=== PATIENT | male | born 1950 | race Caucasian/White ===

== ENCOUNTER 2022-07-24 12:10 | Inpatient (IN) | payer MEDICARE ==
[~2022-07-24] VITALS: Ht 177.8 cm; Wt 72.7 kg
[2022-07-24] MEDS ORDERED: ATOR40TA71 PO (12:37)
[2022-07-24] MEDS ORDERED: EMPA10TA3 PO (12:37)
[2022-07-24] MEDS ORDERED: METF-446 PO (12:37)
[2022-07-24] MEDS ORDERED: AMLO10TA55 PO (12:37)
[2022-07-24] MEDS ORDERED: METO25 PO (12:37)
[2022-07-24] MEDS ORDERED: LOSA100T58 PO (12:37)
[2022-07-24] MEDS ORDERED: PIOG15TA66 PO (12:37)
[2022-07-24] MEDS ORDERED: TAMS-13 PO (12:37)
[2022-07-24] MEDS ORDERED: IBUPROFEN 600 MG TABLET PO ONE (17:00)
[2022-07-24] MEDS ORDERED: SODIUM CHLORIDE 0.9% 1,000 ML IV ONE ×2 (17:00→18:15)
[2022-07-24 17:43] LABS: CALCIUM, TOTAL 9.4 mg/dL (8.8-10.5); CREATININE 1.75 mg/dL (0.60-1.30); POTASSIUM 3.3 mmol/L (3.5-5.1)
[2022-07-24] MEDS ORDERED: MORPHINE SULFATE 2 MG/ML SYRINGE IVP ONE (18:00)
[2022-07-24] MEDS ORDERED: MORPHINE SULFATE 2 MG/ML SYRINGE IVP PRN (18:15)
[2022-07-24] MEDS ORDERED: ONDANSETRON HCL 4 MG/2 ML VIAL IVP PRN ×2 (18:15→22:15)
[2022-07-24 18:20] LABS: BASOPHILS % (AUTO) 0.4 % (0.0-2.0); EOSINOPHILS % (AUTO) 0.4 % (1.0-6.0); HEMATOCRIT 40.4 % (41-53); HEMOGLOBIN 13.3 g/dL (13.5-17.5); LYMPHOCYTES # (AUTO) 1.1 K/uL (1.0-4.8); LYMPHOCYTES % (AUTO) 15.9 % (22.0-44.0); MEAN CORPUSCULAR HEMOGLOBIN 32.3 pg (26.0-34.0); MEAN CORPUSCULAR HGB CONC 32.8 G/dL (31.0-37.0); MEAN CORPUSCULAR VOLUME 98 fL (80-100); MONOCYTES # (AUTO) 0.3 K/uL (0.1-1.0); NEUTROPHILS # (AUTO) 5.4 K/uL (1.8-7.7); NEUTROPHILS % (AUTO) 78.3 % (40.0-70.0); PLATELET COUNT (AUTO) 283 K/uL (150-450); RED BLOOD CELL COUNT(AUTO) 4.11 MIL/uL (4.50-5.90); RED CELL DISTRIBUTION WIDTH 13.7 % (11.5-14.5)
[2022-07-24 19:10] LABS: COVID AG,FIA SOURCE NASOPHARYNGEAL
[2022-07-24 21:28] VITALS: BP 172/105
[2022-07-24] MEDS ORDERED: LOSARTAN POTASSIUM 50 MG TABLET PO ONE (22:00)
[2022-07-24] MEDS ORDERED: AmLODIPine BESYLATE 10 MG TABLET PO ONE (22:00)
[2022-07-24] MEDS ORDERED: IPRATROPIUM BROMIDE 0.5 MG/2.5 ML NEB SOLUTION NEB PRN (22:15)
[2022-07-24] MEDS ORDERED: MAGNESIUM HYDROXIDE SUSPENSION 30 ML UDCUP PO PRN (22:15)
[2022-07-24] MEDS ORDERED: DEXTROSE 50%-WATER 25 GM/50 ML SYRINGE IVP PRN (22:15)
[2022-07-24] MEDS ORDERED: BISACODYL 10 MG RECTAL RECTAL SUPPOSITORY PR PRN (22:15)
[2022-07-24] MEDS ORDERED: ALBUTEROL SULFATE 2.5 MG/0.5 ML NEB SOLUTION NEB PRN (22:15)
[2022-07-24] MEDS ORDERED: ACETAMINOPHEN 325 MG TABLET PO PRN (22:15)
[2022-07-24] MEDS ORDERED: METOPROLOL TARTRATE 25 MG TABLET PO ONE (22:15)
[2022-07-24] MEDS ORDERED: ZOLPIDEM TARTRATE 5 MG TABLET PO PRN (22:15)
[2022-07-24] MEDS ORDERED: POTASSIUM CHLORIDE 20 MEQ ER TABLET PO ONE (22:30)
[2022-07-24] MEDS: ATORVASTATIN CALCIUM 40 MG TABLET PO SCH (22:42)
[2022-07-24] MEDS: INSULIN LISPRO 100 UNITS/ML SQ PRN (22:45)
[2022-07-24] MEDS: SODIUM CHLORIDE 0.9% 1,000 ML IV SCH (22:48)
[2022-07-24] MEDS: HEPARIN SODIUM,PORCINE 5,000 UNITS/ML VIAL SQ SCH (23:15)
[2022-07-24 23:36] LABS: GLUCOMETER DEV NAME(LOC) 6N.2B; GLUCOSE,POINT OF CARE 218 MG/DL (70-110)
[2022-07-25 04:00] VITALS: BP 144/95
[2022-07-25] MEDS: EMPAGLIFLOZIN 10 MG TABLET PO SCH (06:20)
[2022-07-25 07:54] VITALS: BP 148/91
[2022-07-25 07:56] LABS: GLUCOMETER DEV NAME(LOC) 6N.2B; GLUCOSE,POINT OF CARE 188 MG/DL (70-110)
[2022-07-25] MEDS: HEPARIN SODIUM,PORCINE 5,000 UNITS/ML VIAL SQ SCH (08:00)
[2022-07-25 08:16] LABS: BASOPHILS % (AUTO) 0.7 % (0.0-2.0); EOSINOPHILS % (AUTO) 2.1 % (1.0-6.0); HEMATOCRIT 40.9 % (41-53); HEMOGLOBIN 13.5 g/dL (13.5-17.5); LYMPHOCYTES # (AUTO) 1.1 K/uL (1.0-4.8); LYMPHOCYTES % (AUTO) 19.6 % (22.0-44.0); MEAN CORPUSCULAR HEMOGLOBIN 32.2 pg (26.0-34.0); MEAN CORPUSCULAR VOLUME 98 fL (80-100); MONOCYTES # (AUTO) 0.4 K/uL (0.1-1.0); MONOCYTES % (AUTO) 7.3 % (2.0-9.0); NEUTROPHILS # (AUTO) 4.1 K/uL (1.8-7.7); NEUTROPHILS % (AUTO) 70.3 % (40.0-70.0); PLATELET COUNT (AUTO) 273 K/uL (150-450); RED BLOOD CELL COUNT(AUTO) 4.19 MIL/uL (4.50-5.90); RED CELL DISTRIBUTION WIDTH 13.4 % (11.5-14.5)
[2022-07-25] MEDS: PANTOPRAZOLE SODIUM 40 MG/VIAL IVP SCH (08:16)
[2022-07-25] MEDS: LOSARTAN POTASSIUM 50 MG TABLET PO SCH (08:16)
[2022-07-25] MEDS: METOPROLOL TARTRATE 25 MG TABLET PO SCH ×2 (08:16→20:41)
[2022-07-25] MEDS: DOCUSATE SODIUM 100 MG CAPSULE PO SCH ×2 (08:16→20:40)
[2022-07-25] MEDS: PIOGLITAZONE HCL 15 MG TABLET PO SCH (08:17)
[2022-07-25] MEDS: AmLODIPine BESYLATE 10 MG TABLET PO SCH (08:17)
[2022-07-25] MEDS: TAMSULOSIN HCL 0.4 MG CAPSULE PO SCH (08:19)
[2022-07-25 08:37] LABS: ALANINE AMINOTRANSFERASE 29 U/L (12-78); ALBUMIN 2.8 g/dL (3.4-5.0); ALKALINE PHOSPHATASE 126 U/L (46-116); ANION GAP 9 mmol/L (8-16); ASPARTATE AMINOTRANSFERASE 36 U/L (15-37); BILIRUBIN,TOTAL 0.6 mg/dL (0.1-1.0); CARBON DIOXIDE 28 mmol/L (22-29); CHLORIDE 103 mmol/L (98-107); CREATININE 1.11 mg/dL (0.60-1.30); GLUCOSE,RANDOM 174 mg/dL (70-110); POTASSIUM 3.7 mmol/L (3.5-5.1); SODIUM SERUM 140 mmol/L (136-145); TOTAL PROTEIN, SERUM 7.8 g/dL (6.4-8.2); UREA NITROGEN, BLOOD 14 mg/dL (7-18)
[2022-07-25 08:38] LABS: GLOMERULAR FILTR. RATE CALC > 60 mL/min (>60)
[2022-07-25] MEDS ORDERED: SODIUM CHLORIDE 0.9% 1,000 ML IV ONE (09:45)
[2022-07-25] MEDS ORDERED: BUPIVACAINE LIPOSOME/PF 1.3%-13.3MG/ML SUSPENSION 20 ML VIAL INJ ONE (10:15)
[2022-07-25 10:16] VITALS: BP 141/89
[2022-07-25] MEDS ORDERED: SODIUM CL IRRIG SOLN BAG 3,000 ML IRRIG ONE (10:29)
[2022-07-25] MEDS ORDERED: BUPIVACAINE HCL/PF 0.25% 30 ML VIAL ONE (10:29)
[2022-07-25] MEDS ORDERED: VANCOMYCIN HCL 1 GM/VIAL ONE (10:29)
[2022-07-25] MEDS ORDERED: TRANEXAMIC ACID 1,000 MG in DEXTROSE 5%-WATER 50 ML IV ONE (10:30)
[2022-07-25] MEDS ORDERED: RINGERS SOLUTION,LACTATED 1,000 ML IV ONE (11:47)
[2022-07-25] MEDS ORDERED: SUGAMMADEX SODIUM 200 MG/2 ML VIAL IVP ONE (13:02)
[2022-07-25] MEDS ORDERED: ACETAMINOPHEN 1000 MG/ISO-OSM 100 ML IV ONE ×2 (13:19→13:45)
[2022-07-25] MEDS: MORPHINE SULFATE 2 MG/ML SYRINGE IVP PRN ×2 (14:21→20:36)
[2022-07-25] MEDS: ENOXAPARIN SODIUM 40 MG/0.4 ML PF SYRINGE SQ SCH (14:43)
[2022-07-25] MEDS: SODIUM CHLORIDE 0.9% 1,000 ML IV SCH (14:44)
[2022-07-25 15:45] VITALS: BP 111/59
[2022-07-25] MEDS: HYDROCODONE/ACETAMINOPHEN 5-325 MG TABLET PO PRN (16:33)
[2022-07-25 18:56] LABS: GLUCOMETER DEV NAME(LOC) 6N.1; GLUCOSE,POINT OF CARE 172 MG/DL (70-110)
[2022-07-25] MEDS: ATORVASTATIN CALCIUM 40 MG TABLET PO SCH (20:40)
[2022-07-25] MEDS: CeFAZolin 1 GM/DEXTROSE 50 ML IV SCH (20:40)
[2022-07-25] MEDS: INSULIN LISPRO 100 UNITS/ML SQ PRN (20:42)
[2022-07-25 21:31] LABS: GLUCOMETER DEV NAME(LOC) 6N.2B; GLUCOSE,POINT OF CARE 166 MG/DL (70-110)
[2022-07-26] MEDS: MORPHINE SULFATE 2 MG/ML SYRINGE IVP PRN (00:11)
[2022-07-26] MEDS: SODIUM CHLORIDE 0.9% 1,000 ML IV SCH ×2 (01:09→14:33)
[2022-07-26] MEDS: CeFAZolin 1 GM/DEXTROSE 50 ML IV SCH ×2 (03:05→11:29)
[2022-07-26] MEDS: EMPAGLIFLOZIN 10 MG TABLET PO SCH (05:55)
[2022-07-26] MEDS ORDERED: FentaNYL CITRATE PF 100 MCG/2 ML VIAL IVP ONE (06:08)
[2022-07-26] MEDS ORDERED: LIDOCAINE/PF 2% 5 ML SYRINGE IVP ONE (06:08)
[2022-07-26] MEDS ORDERED: PROPOFOL 1% 20 ML VIAL IVP ONE (06:08)
[2022-07-26] MEDS ORDERED: ONDANSETRON HCL 4 MG/2 ML VIAL IVP ONE (06:08)
[2022-07-26 06:58] LABS: BASOPHILS % (AUTO) 0.6 % (0.0-2.0); EOSINOPHILS % (AUTO) 0.3 % (1.0-6.0); HEMOGLOBIN 12.4 g/dL (13.5-17.5); LYMPHOCYTES % (AUTO) 9.4 % (22.0-44.0); MEAN CORPUSCULAR HEMOGLOBIN 32.2 pg (26.0-34.0); MEAN CORPUSCULAR HGB CONC 32.5 G/dL (31.0-37.0); MEAN CORPUSCULAR VOLUME 99 fL (80-100); MONOCYTES # (AUTO) 0.8 K/uL (0.1-1.0); MONOCYTES % (AUTO) 8.2 % (2.0-9.0); NEUTROPHILS # (AUTO) 8.5 K/uL (1.8-7.7); NEUTROPHILS % (AUTO) 81.5 % (40.0-70.0); PLATELET COUNT (AUTO) 265 K/uL (150-450); RED BLOOD CELL COUNT(AUTO) 3.83 MIL/uL (4.50-5.90); RED CELL DISTRIBUTION WIDTH 13.7 % (11.5-14.5)
[2022-07-26 07:17] LABS: ALBUMIN 2.7 g/dL (3.4-5.0); BILIRUBIN,TOTAL 0.6 mg/dL (0.1-1.0); CALCIUM, TOTAL 8.8 mg/dL (8.8-10.5); CREATININE 1.25 mg/dL (0.60-1.30); POTASSIUM 4.2 mmol/L (3.5-5.1); TOTAL PROTEIN, SERUM 7.3 g/dL (6.4-8.2)
[2022-07-26 07:46] LABS: GLUCOMETER DEV NAME(LOC) 6N.1; GLUCOSE,POINT OF CARE 132 MG/DL (70-110)
[2022-07-26 08:00] VITALS: BP 134/78
[2022-07-26] MEDS: LOSARTAN POTASSIUM 50 MG TABLET PO SCH (08:08)
[2022-07-26] MEDS: DOCUSATE SODIUM 100 MG CAPSULE PO SCH ×2 (08:08→20:53)
[2022-07-26] MEDS: METOPROLOL TARTRATE 25 MG TABLET PO SCH ×2 (08:08→20:53)
[2022-07-26] MEDS: PIOGLITAZONE HCL 15 MG TABLET PO SCH (08:09)
[2022-07-26] MEDS: PANTOPRAZOLE SODIUM 40 MG/VIAL IVP SCH (08:09)
[2022-07-26] MEDS: TAMSULOSIN HCL 0.4 MG CAPSULE PO SCH (08:09)
[2022-07-26] MEDS: ENOXAPARIN SODIUM 40 MG/0.4 ML PF SYRINGE SQ SCH (08:09)
[2022-07-26] MEDS: AmLODIPine BESYLATE 10 MG TABLET PO SCH (08:09)
[2022-07-26] MEDS: HYDROCODONE/ACETAMINOPHEN 5-325 MG TABLET PO PRN ×2 (08:26→20:54)
[2022-07-26] MEDS: INSULIN LISPRO 100 UNITS/ML SQ PRN ×3 (11:25→21:06)
[2022-07-26 11:57] LABS: GLUCOMETER DEV NAME(LOC) 6N.2B; GLUCOSE,POINT OF CARE 310 MG/DL (70-110)
[2022-07-26 14:22] VITALS: BP 130/70
[2022-07-26 15:31] VITALS: BP 144/77
[2022-07-26] MEDS: MetFORMIN HCL 500 MG TABLET PO SCH (17:00)
[2022-07-26 19:41] VITALS: BP 139/79
[2022-07-26] MEDS: ATORVASTATIN CALCIUM 40 MG TABLET PO SCH (20:53)
[2022-07-26 20:55] LABS: GLUCOMETER DEV NAME(LOC) 6N.2B; GLUCOSE,POINT OF CARE 249 MG/DL (70-110)
[2022-07-26 21:46] LABS: GLUCOMETER DEV NAME(LOC) 6N.2B; GLUCOSE,POINT OF CARE 222 MG/DL (70-110)
[2022-07-27] MEDS: EMPAGLIFLOZIN 10 MG TABLET PO SCH (05:00)
[2022-07-27 05:39] VITALS: BP 133/78
[2022-07-27 06:41] LABS: GLUCOMETER DEV NAME(LOC) 6N.2B; GLUCOSE,POINT OF CARE 124 MG/DL (70-110)
[2022-07-27 06:46] LABS: BASOPHILS % (AUTO) 0.5 % (0.0-2.0); HEMATOCRIT 37.4 % (41-53); HEMOGLOBIN 12.1 g/dL (13.5-17.5); LYMPHOCYTES % (AUTO) 10.7 % (22.0-44.0); MEAN CORPUSCULAR HEMOGLOBIN 31.8 pg (26.0-34.0); MEAN CORPUSCULAR HGB CONC 32.4 G/dL (31.0-37.0); MEAN CORPUSCULAR VOLUME 98 fL (80-100); MONOCYTES % (AUTO) 10.1 % (2.0-9.0); NEUTROPHILS # (AUTO) 7.4 K/uL (1.8-7.7); NEUTROPHILS % (AUTO) 77.7 % (40.0-70.0); PLATELET COUNT (AUTO) 248 K/uL (150-450); RED BLOOD CELL COUNT(AUTO) 3.81 MIL/uL (4.50-5.90); RED CELL DISTRIBUTION WIDTH 13.5 % (11.5-14.5)
[2022-07-27 07:05] LABS: ALBUMIN 2.2 g/dL (3.4-5.0); BILIRUBIN,TOTAL 0.8 mg/dL (0.1-1.0); CALCIUM, TOTAL 8.8 mg/dL (8.8-10.5); CREATININE 1.21 mg/dL (0.60-1.30); POTASSIUM 3.8 mmol/L (3.5-5.1); TOTAL PROTEIN, SERUM 6.9 g/dL (6.4-8.2)
[2022-07-27 07:20] VITALS: BP 135/73
[2022-07-27] MEDS: DOCUSATE SODIUM 100 MG CAPSULE PO SCH ×2 (09:02→20:34)
[2022-07-27] MEDS: ENOXAPARIN SODIUM 40 MG/0.4 ML PF SYRINGE SQ SCH (09:02)
[2022-07-27] MEDS: PIOGLITAZONE HCL 15 MG TABLET PO SCH (09:03)
[2022-07-27] MEDS: LOSARTAN POTASSIUM 50 MG TABLET PO SCH (09:03)
[2022-07-27] MEDS: AmLODIPine BESYLATE 10 MG TABLET PO SCH (09:03)
[2022-07-27] MEDS: MetFORMIN HCL 500 MG TABLET PO SCH ×2 (09:03→17:21)
[2022-07-27] MEDS: TAMSULOSIN HCL 0.4 MG CAPSULE PO SCH (09:03)
[2022-07-27] MEDS: PANTOPRAZOLE SODIUM 40 MG/VIAL IVP SCH (09:03)
[2022-07-27] MEDS: METOPROLOL TARTRATE 25 MG TABLET PO SCH ×2 (09:03→20:35)
[2022-07-27] MEDS: INSULIN LISPRO 100 UNITS/ML SQ PRN ×3 (12:04→20:38)
[2022-07-27 15:31] VITALS: BP 130/73
[2022-07-27 15:36] LABS: GLUCOMETER DEV NAME(LOC) 6N.2B; GLUCOSE,POINT OF CARE 193 MG/DL (70-110)
[2022-07-27] MEDS: SODIUM CHLORIDE 0.9% 1,000 ML IV SCH (17:36)
[2022-07-27 19:01] LABS: GLUCOMETER DEV NAME(LOC) 6N.1; GLUCOSE,POINT OF CARE 152 MG/DL (70-110)
[2022-07-27 19:20] VITALS: BP 137/81
[2022-07-27] MEDS: HYDROCODONE/ACETAMINOPHEN 5-325 MG TABLET PO PRN (20:35)
[2022-07-27] MEDS: ATORVASTATIN CALCIUM 40 MG TABLET PO SCH (20:35)
[2022-07-28 03:50] VITALS: BP 159/81
[2022-07-28] MEDS: EMPAGLIFLOZIN 10 MG TABLET PO SCH (05:47)
[2022-07-28] MEDS: SODIUM CHLORIDE 0.9% 1,000 ML IV SCH (05:49)
[2022-07-28 06:02] LABS: GLUCOMETER DEV NAME(LOC) 6N.2B; GLUCOSE,POINT OF CARE 171 MG/DL (70-110)
[2022-07-28 07:23] VITALS: BP 141/77
[2022-07-28 07:50] LABS: BASOPHILS % (AUTO) 0.6 % (0.0-2.0); EOSINOPHILS % (AUTO) 1.8 % (1.0-6.0); HEMATOCRIT 35.4 % (41-53); HEMOGLOBIN 11.7 g/dL (13.5-17.5); LYMPHOCYTES % (AUTO) 10.2 % (22.0-44.0); MEAN CORPUSCULAR HEMOGLOBIN 32.3 pg (26.0-34.0); MEAN CORPUSCULAR VOLUME 98 fL (80-100); MONOCYTES # (AUTO) 0.7 K/uL (0.1-1.0); MONOCYTES % (AUTO) 7.3 % (2.0-9.0); NEUTROPHILS % (AUTO) 80.1 % (40.0-70.0); PLATELET COUNT (AUTO) 266 K/uL (150-450); RED BLOOD CELL COUNT(AUTO) 3.62 MIL/uL (4.50-5.90); RED CELL DISTRIBUTION WIDTH 13.6 % (11.5-14.5)
[2022-07-28] MEDS: TAMSULOSIN HCL 0.4 MG CAPSULE PO SCH (08:03)
[2022-07-28] MEDS: AmLODIPine BESYLATE 10 MG TABLET PO SCH (08:03)
[2022-07-28] MEDS: METOPROLOL TARTRATE 25 MG TABLET PO SCH ×2 (08:03→19:59)
[2022-07-28] MEDS: PANTOPRAZOLE SODIUM 40 MG/VIAL IVP SCH (08:03)
[2022-07-28] MEDS: MetFORMIN HCL 500 MG TABLET PO SCH ×2 (08:03→17:43)
[2022-07-28] MEDS: DOCUSATE SODIUM 100 MG CAPSULE PO SCH ×2 (08:03→19:59)
[2022-07-28] MEDS: LOSARTAN POTASSIUM 50 MG TABLET PO SCH (08:03)
[2022-07-28] MEDS: ENOXAPARIN SODIUM 40 MG/0.4 ML PF SYRINGE SQ SCH (08:03)
[2022-07-28] MEDS: PIOGLITAZONE HCL 15 MG TABLET PO SCH (08:03)
[2022-07-28 08:05] LABS: ALANINE AMINOTRANSFERASE 17 U/L (12-78); ALBUMIN 2.2 g/dL (3.4-5.0); ALKALINE PHOSPHATASE 139 U/L (46-116); ANION GAP 9 mmol/L (8-16); ASPARTATE AMINOTRANSFERASE 38 U/L (15-37); BILIRUBIN,TOTAL 0.7 mg/dL (0.1-1.0); CALCIUM, TOTAL 8.9 mg/dL (8.8-10.5); CARBON DIOXIDE 25 mmol/L (22-29); CHLORIDE 102 mmol/L (98-107); CREATININE 0.98 mg/dL (0.60-1.30); GLUCOSE,RANDOM 121 mg/dL (70-110); POTASSIUM 4.5 mmol/L (3.5-5.1); SODIUM SERUM 136 mmol/L (136-145); TOTAL PROTEIN, SERUM 7.1 g/dL (6.4-8.2); UREA NITROGEN, BLOOD 13 mg/dL (7-18)
[2022-07-28 08:06] LABS: GLOMERULAR FILTR. RATE CALC > 60 mL/min (>60)
[2022-07-28 08:56] LABS: GLUCOMETER DEV NAME(LOC) 6N.1; GLUCOSE,POINT OF CARE 127 MG/DL (70-110)
[2022-07-28] MEDS: INSULIN LISPRO 100 UNITS/ML SQ PRN ×3 (11:29→20:05)
[2022-07-28] MEDS: HYDROCODONE/ACETAMINOPHEN 5-325 MG TABLET PO PRN (15:51)
[2022-07-28 15:57] VITALS: BP 135/75
[2022-07-28] MEDS ORDERED: DOCU-385 PO (18:03)
[2022-07-28] MEDS ORDERED: ENOX40SY14 SQ (18:04)
[2022-07-28] MEDS ORDERED: ACET-2247 PO (18:05)
[2022-07-28] MEDS ORDERED: HYDR-4723 PO (18:06)
[2022-07-28] MEDS ORDERED: BISA-151 PO (18:06)
[2022-07-28 19:46] LABS: GLUCOMETER DEV NAME(LOC) 6N.1; GLUCOSE,POINT OF CARE 201 MG/DL (70-110)
[2022-07-28 19:46] LABS: GLUCOMETER DEV NAME(LOC) 6N.2B; GLUCOSE,POINT OF CARE 192 MG/DL (70-110)
[2022-07-28] MEDS: ATORVASTATIN CALCIUM 40 MG TABLET PO SCH (19:59)
[2022-07-28 22:51] LABS: GLUCOMETER DEV NAME(LOC) 6N.1; GLUCOSE,POINT OF CARE 218 MG/DL (70-110)
== END 2022-07-28 21:20 | DRG 522 ==
LOC: EMS 12:10 → 6N 18:55
PROVIDERS: ADMIT Hospitalist; ATTEND Hospitalist
PROC: 0SRS0JZ Replacement of Left Hip Joint, Femoral Surface with Synthetic Substitute, Open Approach (ICD-10-PCS; principal; 2022-07-25 11:10)
DX: S72.092A Other fracture of head and neck of left femur, initial encounter for closed fracture (principal); E87.1 Hypo-osmolality and hyponatremia; E11.65 Type 2 diabetes mellitus with hyperglycemia; E87.6 Hypokalemia; I10 Essential (primary) hypertension; N40.0 Benign prostatic hyperplasia without lower urinary tract symptoms; N28.9 Disorder of kidney and ureter, unspecified; Z20.822 Contact with and (suspected) exposure to COVID-19; W18.2XXA Fall in (into) shower or empty bathtub, initial encounter; Y99.8 Other external cause status; Y92.002 Bathroom of unspecified non-institutional (private) residence as the place of occurrence of the external cause; Y93.E1 Activity, personal bathing and showering; Z79.899 Other long term (current) drug therapy
CPT/HCPCS: 73501; 73503; 80048; 80053; 82962; 85025; 86850; 86900; 86901; 87081; 88300; 97110; 97116; 97162; 97166; 97530; 99285; C9113; C9290; J0131; J0690; J1644; J1650; J2270; J2405; J2704; J3010; J3370; J3490; J7030; J7060; J7120; Q9967